=== PATIENT | female | born 1995 | race Caucasian/White ===

== ENCOUNTER 2018-02-14 05:30 | Inpatient (IN) | payer BC, OTHER ==
[2018-02-14] MEDS ORDERED: OXYTOCIN 10 UNIT/ML 1 ML VIAL IM PRN (05:45)
[2018-02-14] MEDS ORDERED: TERBUTALINE 1 MG/ML VIAL SQ PRN (05:45)
[2018-02-14] MEDS ORDERED: LIDOCAINE 1% (PF) 10 MG/ML (30 ML SDV) SQ PRN (05:45)
[2018-02-14] MEDS ORDERED: CARBOPROST TROMETHAMINE 250 MCG/ML 1 ML AMP IM PRN (05:45)
[2018-02-14] MEDS: LACTATED RINGERS 1,000 ML IV SCH ×2 (05:45→06:52)
[2018-02-14] MEDS ORDERED: METHYLERGONOVINE 0.2 MG/ML 1 ML AMP IM PRN (05:45)
[2018-02-14 05:52] VITALS: BMI 30.8
[2018-02-14] MEDS ORDERED: BUTORPHANOL 1 MG/ML 1 ML VIAL IV PRN (05:54)
[2018-02-14 06:13] LABS: Basophils % (A) 0 %; Eosinophils # (A) 0.1 k/uL (0-0.7); Eosinophils % (A) 1 %; HCT 36.5 % (34.0-46.0); HGB 11.9 gm/dL (11.4-16.0); Lymphocytes % (A) 5 %; MCH 26.7 pg (25.0-35.0); MCHC 32.5 g/dL (31.0-37.0); MCV 82.3 fL (80.0-100.0); Mean Platelet Volume 9.5; Monocytes # (A) 0.7 k/uL (0-1.0); Monocytes % (A) 3 %; Neutrophils # (A) 17.2 k/uL (1.3-7.7); Neutrophils % (A) 90 %; Platelet Count 230 k/uL (150-450); RBC 4.44 m/uL (3.80-5.40); RDW 14.3 % (11.5-15.5); WBC 19.2 k/uL (4.0-11.0)
[2018-02-14] MEDS ORDERED: BUPIVACAINE (PF) 0.25% 30 ML VIAL ONE (06:25)
[2018-02-14] MEDS ORDERED: SODIUM CHLORIDE 0.9% 100 ML BAG ONE (06:25)
[2018-02-14] MEDS ORDERED: fentaNYL (PF) 50 MCG/ML 5 ML AMP ONE (06:25)
[2018-02-14] MEDS ORDERED: BUPIVACAINE (PF) 0.25% 25 ML, fentaNYL (PF) 200 MCG in SODIUM CHLORIDE 0.9% 71 ML EPIDURAL ONE (06:49)
--- NOTE | 2018-02-14 07:56 | P.HPOB ---
History of Present Illness H&P Date: 02/14/18 Chief Complaint: Strong regular uterine contractions This is a 22-year-old white female 1 para 0 EDC 02/18/2018 at 39-3/7 weeks' gestation. Patient presented with strong regular uterine contractions in early spontaneous labor. Fetus is been active throughout the . She denies vaginal bleeding. She was scheduled for elective induction this morning, but came in through the night in spontaneous labor. Past medical history is negative. Past surgical history tonsillectomy and adenoidectomy, tympanic tubes placed at age 6. Current medications vitamins daily. ALLERGIES include Lorabid to which reports a rash. 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 Family history significant for hypertension. history is significant for blood type O+, rubella status immune. VDRL testing, urine culture, hepatitis B surface antigen, HIV testing, gonorrhea and chlamydia cultures, group B strep cultures all negative. One-hour Glucola 93. On exam this is a pleasant young female, she is 5 foot 3 inches, 174 pounds, blood pressure 131/78 on admission. The general physical exam is within normal limits. Cervix at time of this dictation is 7 cm dilated, 100% effaced, -1 station, vertex presentation with a fore bag. Artificial amniorrhexis of the fore bag reveals clear fluid. heart rate is in the 130s baseline with frequent accelerations, consistent with reactive NST. Impression: 39-3/7 weeks intrauterine , active spontaneous labor, all signs reassuring. Plan: Epidural has been placed. Consider oxytocin augmentation pending clinical progress. Continue close maternal and surveillance. Anticipate normal spontaneous vaginal delivery. Review of Systems Negative except as in HPI Past Medical History Past Medical History: No Reported History History of Any Multi-Drug Resistant Organisms: None Reported Additional Past Surgical History / Comment(s): Tubes in ears. Past Anesthesia/Blood Transfusion Reactions: No Reported Reaction Smoking Status: Never smoker Past Alcohol Use History: None Reported Past Drug Use History: None Reported - Past Family History Mother Family Medical History: No Reported History Medications and Allergies Home Medications Medication Instructions Recorded Confirmed Type Pnv No.95/Ferrous Fum/Folic AC 1 tab PO DAILY 02/14/18 02/14/18 History [ Multivitamin Tablet] Allergies Allergy/AdvReac Type Severity Reaction Status Date / Time loracarbef [From Lorabid] Allergy Rash/Hives Verified 02/14/18 05:44 Exam - Vital Signs Vital signs: Vital Signs Temp Pulse Resp BP 02/14/18 05:46 98.5 F 123 H 18 131/78 Intake and Output 02/13/18 02/14/18 02/14/18 22:59 06:59 14:59 Intake Total 1000 Balance 1000 Intake: Intake, IV Titration 1000 Amount Lactated Ringers 1,000 ml 1000 @ 125 mls/hr IV .Q8H MARVEL Rx#:[id number] Other: # Voids 1 Weight 78.925 kg See dictation please under HPI Results Result Diagrams: 02/14/18 05:55 Abnormal Lab Results - Last 24 Hours (Table) 02/14/18 Range/Units 05:55 WBC 19.2 H (4.0-11.0) k/uL Neutrophils # 17.2 H (1.3-7.7) k/uL Assessment and Plan Plan: Continue close maternal and surveillance. Epidural has been placed and is functioning well. Anticipate normal spontaneous vaginal delivery. Time with Patient: Less than 30
[2018-02-14] MEDS: OXYTOCIN 20 UNITS/1000 ML NS 1,000 ML IV SCH (07:57)
[2018-02-14] MEDS ORDERED: ACETAMINOPHEN TAB 325 MG TAB PO PRN (10:51)
[2018-02-14] MEDS ORDERED: HYDROCORTISONE 2.5% RECTAL CREAM 30 GM TUBE RECTAL PRN (10:51)
[2018-02-14] MEDS ORDERED: BENZOCAINE/MENTHOL SPRAY 1 GM/SPRAY AEROSOL TOPICAL PRN (10:51)
[2018-02-14] MEDS ORDERED: ZOLPIDEM 5 MG TAB PO PRN (10:51)
[2018-02-14] MEDS ORDERED: diphenhydrAMINE 50 MG CAP PO PRN (10:51)
[2018-02-14] MEDS ORDERED: diphenhydrAMINE 25 MG CAP PO PRN (10:51)
[2018-02-14] MEDS ORDERED: WITCH HAZEL 1 EACH MED..PAD TOPICAL PRN (10:51)
[2018-02-14] MEDS ORDERED: SIMETHICONE 80 MG CHEWABLE PO PRN (10:51)
[2018-02-14] MEDS ORDERED: LANOLIN CREAM 5 GM TUBE TOPICAL PRN (10:51)
[2018-02-14] MEDS ORDERED: diphenhydrAMINE 50 MG/ML 1 ML VIAL IVP PRN ×2 (10:51)
--- NOTE | 2018-02-14 10:51 | P.PROBDLV ---
Vaginal Delivery Note - . Vaginal Delivery Note: This is a 22-year-old white female 1 para 0 EDC 02/18/2018 at 39-3/7 weeks' gestation. Patient presented in active spontaneous labor. was essentially unremarkable, group B strep cultures negative, please see my dictated history and physical for details. Epidural was placed per her request. Oxytocin augmentation was given. Patient progressed well through the first stage of labor and at all times heart tones were reassuring. She became completely dilated at 0940 hours and began the second stage of labor at that time. She pushed successfully in the dorsal lithotomy position, and ultimately the perineal body was prepped and draped in usual sterile fashion. 's head crowned in the occiput anterior position. Infant restituted accordingly. There was no nuchal cord noted. The anterior shoulder was gently delivered from underneath the pubic symphysis at which time the oropharynx, external nares, and nasopharynx were all bulb suctioned. Patient was officially delivered of a liveborn male infant at 1032 hrs. The umbilical cord was doubly clamped and ligated. He was handed to waiting nurses for evaluation where scores of 8 and 9 at one and 5 minutes respectively were given. The placenta delivered spontaneously, it was inspected and noted to be meconium-stained with trivascular cord. This time the perineal body was redraped. Inspection of the cervix, vagina, perineum and periurethral areas revealed no lacerations and no defects. The was a small right labial defect that was superficial, non-hemorrhagic and therefore left in situ. Fundus is firm and in the midline, symmetric and 18 week size upon completion of delivery. weighed 3510 g or 7 lbs. 11 oz. Patient and her family are allowed to begin the bonding experience in the LDR. They are requesting circumcision further son.
[2018-02-14] MEDS: IBUPROFEN 600 MG TAB PO PRN (14:08)
[2018-02-14 16:34] VITALS: RESP 16
[2018-02-14] MEDS: SENNOSIDES-DOCUSATE SODIUM 1 EACH TAB PO SCH (20:27)
[2018-02-15] MEDS: IBUPROFEN 600 MG TAB PO PRN (00:35)
[2018-02-15 07:51] VITALS: BP 131/63; PULSE 87; TEMP 97.9
[2018-02-15] MEDS: LACTATED RINGERS 1,000 ML IV SCH ×2 (07:53→07:54)
[2018-02-15] MEDS: OXYTOCIN 20 UNITS/1000 ML NS 1,000 ML IV SCH (07:54)
[2018-02-15] MEDS: SENNOSIDES-DOCUSATE SODIUM 1 EACH TAB PO SCH (07:54)
[2018-02-15 08:30] LABS: Basophils % (A) 0 %; Eosinophils # (A) 0.1 k/uL (0-0.7); Eosinophils % (A) 1 %; HCT 28.9 % (34.0-46.0); Lymphocytes # (A) 2.5 k/uL (1.0-4.8); Lymphocytes % (A) 15 %; MCH 26.9 pg (25.0-35.0); MCHC 32.1 g/dL (31.0-37.0); MCV 83.8 fL (80.0-100.0); Mean Platelet Volume 9.3; Monocytes # (A) 0.9 k/uL (0-1.0); Monocytes % (A) 5 %; Neutrophils # (A) 13.2 k/uL (1.3-7.7); Neutrophils % (A) 78 %; Platelet Count 202 k/uL (150-450); RBC 3.44 m/uL (3.80-5.40); RDW 14.6 % (11.5-15.5)
[2018-02-15 08:33] LABS: HGB 9.3 gm/dL (11.4-16.0)
--- NOTE | 2018-02-15 11:39 | P.DS ---
Providers Date of admission: 02/14/18 05:30 Expected date of discharge: 02/15/18 Attending physician: Caridad Cheema Primary care physician: [facility] Course: This is a 22-year-old white female 1 para 0 EDC 02/18/2018 at 39-3/7 weeks' gestation. Patient presented in spontaneous active labor. was unremarkable, group B strep cultures negative, blood type O positive, rubella status immune. Please see my dictated history and physical for details. Spontaneous amniorrhexis revealed clear fluid. Epidural was placed per her request. She progressed well and went on to deliver vaginally a liveborn male with scores of 8 and 9 at one and 5 minutes respectively. There was an estimated blood loss recorded of 400 mL, and a small right labial laceration easily repaired. weighed 7 lbs. 11 oz. or 3510 g. Please see my dictated delivery note for details. This morning the patient and her baby are both doing well. Circumcision has been performed. The patient is voiding, ambulating, passing flatus without difficulty. Vital signs are stable and she is afebrile. Fundus is firm and in the midline, symmetric and 18 week size. Extremities are negative for edema. Breasts are not engorged. Lochia rubra is minimal to moderate. Patient is judged to be in very good condition for discharge home. She is reminded to use [id number] ibuprofen products as needed for pain, 200 mg pills, 3 every 6 hours as needed. I've asked her to call me with any fevers shakes or chills, foul smelling or copious lochia, with the passage of large blood clots, with any pain not alleviated by ukno-tmf-onkkkko products, or indeed with any concerns. 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 Patient Condition at Discharge: Good Plan - Discharge Summary New Discharge Prescriptions: No Action Pnv No.95/Ferrous Fum/Folic AC [ Multivitamin Tablet] 1 tab PO DAILY Discharge Medication List Pnv No.95/Ferrous Fum/Folic AC [ Multivitamin Tablet] 1 tab PO DAILY 04/27 [History] Follow up Appointment(s)/Referral(s): Caridad Cheema MD [STAFF PHYSICIAN] - 6 Weeks Discharge Disposition: HOME SELF-CARE
== END 2018-02-15 13:35 | disposition home or self-care (01) | DRG 775 ==
LOC: 4FBP 05:30
PROVIDERS: ADMIT Obstetrics & Gynecology; ATTEND Obstetrics & Gynecology
PROC: 10E0XZZ Delivery of Products of Conception, External Approach (ICD-10-PCS; principal; 2018-02-14)
PROC: 0HQ9XZZ Repair Perineum Skin, External Approach (ICD-10-PCS; 2018-02-14)
PROC: 10907ZC Drainage of Amniotic Fluid, Therapeutic from Products of Conception, Via Natural or Artificial Opening (ICD-10-PCS; 2018-02-14)
PROC: 3E0R3NZ Introduction of Analgesics, Hypnotics, Sedatives into Spinal Canal, Percutaneous Approach (ICD-10-PCS; 2018-02-14)
PROC: 00HU33Z Insertion of Infusion Device into Spinal Canal, Percutaneous Approach (ICD-10-PCS; 2018-02-14)
DX: O77.0 Labor and delivery complicated by meconium in amniotic fluid (principal); O70.0 First degree perineal laceration during delivery; Z37.0 Single live birth; Z82.49 Family history of ischemic heart disease and other diseases of the circulatory system; Z3A.39 39 weeks gestation of pregnancy; Z88.8 Allergy status to other drugs, medicaments and biological substances; Z90.89 Acquired absence of other organs
CPT/HCPCS: 85025; 88307

== ENCOUNTER 2019-12-20 09:23 | Day surgery (SDC) | payer BC, OTHER ==
[2019-12-18 09:14] VITALS: BMI 26.6
[~2019-12-20 09:23] MED LIST: LACTATED RINGERS 1,000 ML IV SCH; LIDOCAINE 1% (10MG/ML) FOR IV START INTRADERMA PRN
[2019-12-20 10:09] VITALS: RESP 16; TEMP 98.4
[2019-12-20] MEDS ORDERED: ONDANSETRON 4 MG/2 ML VIAL IVP ONE (10:14)
[2019-12-20] MEDS ORDERED: LIDOCAINE 1% INJ 10MG/ML (20 ML MDV) ONE (11:40)
[2019-12-20] MEDS ORDERED: PROPOFOL 10 MG/ML 20 ML VIAL IV ONE (11:40)
--- NOTE | 2019-12-20 11:47 | P.GSHP ---
History of Present Illness H&P Date: 12/20/19 Chief Complaint: GI bleed, colitis Is a 24-year-old female who has a history of rectal bleeding and mucousy bowel movements patient rents today for colonoscopy to evaluate for colitis. Past Medical History Past Medical History: No Reported History, GI Bleed History of Any Multi-Drug Resistant Organisms: None Reported Past Surgical History: Tonsillectomy Additional Past Surgical History / Comment(s): Tubes in ears. Past Anesthesia/Blood Transfusion Reactions: No Reported Reaction Smoking Status: Never smoker - Past Family History Mother Family Medical History: No Reported History Medications and Allergies Home Medications Medication Instructions Recorded Confirmed Type Medroxyprogesterone Acetate 150 mg IM Q90D 12/18/19 12/20/19 History [Depo-Provera] Multivitamins, Thera [Multivitamin 1 tab PO DAILY 12/18/19 12/20/19 History (formulary)] Allergies Allergy/AdvReac Type Severity Reaction Status Date / Time loracarbef [From Lorabid] Allergy Rash/Hives Verified 12/20/19 09:53 Surgical - Exam Vital Signs Temp Pulse Resp BP Pulse Ox 98.4 F 95 16 126/64 100 12/20/19 10:08 12/20/19 10:08 12/20/19 10:08 12/20/19 10:08 12/20/19 10:08 - General well developed, well nourished, no distress - Eyes PERRL - ENT normal pinna - Neck no masses - Respiratory normal expansion - Cardiovascular Rhythm: regular - Abdomen Abdomen: soft, non tender Assessment and Plan Assessment: GI bleed, mucousy bowel movements. We'll perform colonoscopy.
--- NOTE | 2019-12-20 12:18 | P.OP ---
Date of Procedure: 12/20/19 Preoperative Diagnosis: Colitis Postoperative Diagnosis: Proctitis Procedure(s) Performed: Colonoscopy Anesthesia: MAC Surgeon: Rommel Bowles Pathology: other (Rectum) Condition: stable Disposition: PACU Description of Procedure: The patient's placed on the endoscopy table in the lateral position. She received IV station. Digital rectal exam was performed which revealed no abnormalities. The flexible colonoscope was then placed patient anus and passed throughout the entire colon. The ileocecal valve sutures. The cecum, ascending and transverse colon appeared normal. The descending and sigmoid colon appeared normal. The scope was then brought back the rectum and there was evidence of proctitis. The proctitis extending to approximately 30 cm there was evidence of erythema and white plaques. The area is photographed and biopsied. Scope was withdrawn for patient.
[2019-12-20 12:25] VITALS: BP 107/67; PULSE 63
== END 2019-12-20 12:37 | disposition home or self-care (01) ==
LOC: ORWHC2ENDO 09:23
PROVIDERS: ATTEND Surgery
DX: K62.89 Other specified diseases of anus and rectum (principal); Z87.19 Personal history of other diseases of the digestive system; Z90.89 Acquired absence of other organs; Z98.890 Other specified postprocedural states; Z79.3 Long term (current) use of hormonal contraceptives; Z88.1 Allergy status to other antibiotic agents
CPT/HCPCS: 81025; 88305; 45380; J2405; J2001; J2704

== ENCOUNTER 2020-04-14 12:53 | Emergency (ER) | payer BC, OTHER ==
[2020-04-14 13:05] VITALS: RESP 18; TEMP 98.1
[2020-04-14] MEDS ORDERED: KETOROLAC 60 MG/2 ML VIAL IM STA (14:45)
[2020-04-14] MEDS ORDERED: DIAZEPAM 5 MG TAB PO STA (14:45)
[2020-04-14] MEDS ORDERED: Acetaminophen-Codeine 300-30mg TAB PO STA (14:45)
[2020-04-14] MEDS ORDERED: ACET/COD 300 MG/30 MG STARTER PACK 6 TAB BTL PO STA (14:45)
[2020-04-14] MEDS ORDERED: IBUPROFEN 600 MG STARTER PACK 4 TAB BTL PO STA (14:46)
--- NOTE | 2020-04-14 14:46 | ED ---
Recheck HPI - General Chief Complaint: Eye Problems Stated Complaint: Blurred Vision Time Seen by Provider: 04/14/20 14:23 Source: patient, RN notes reviewed, old records reviewed Mode of arrival: ambulatory Limitations: no limitations - History of Present Illness Initial Comments: This is a 22-year-old female she presents today for evaluation of some blurry vision patient is suffering from chronic neck pain or weak. No trauma. Numbness and tingling left arm and fingers. She has been treated for sinus infections and multiple different imaging of that modalities done including CTs of her neck, patient seen a chiropractor as well with no improvement. Patient denying any fevers. Again denies any trauma. Is having persistent pain states that some blurry vision which bothered her. She is certainly medication a muscle relaxer for helping with the pain MD Complaint: other (Recheck in neck pain) -: week(s) Returns Today for: persistent/worsening pain related to initial visit Symptoms Since Prior Visit: no new symptoms, worsening pain Associated Symptoms: none Treatments Prior to Arrival: other medications (Muscle relaxer) - Related Data Home Medications Medication Instructions Recorded Confirmed Medroxyprogesterone Acetate 150 mg IM Q90D 12/18/19 12/20/19 [Depo-Provera] Multivitamins, Thera [Multivitamin 1 tab PO DAILY 12/18/19 12/20/19 (formulary)] Allergies Allergy/AdvReac Type Severity Reaction Status Date / Time loracarbef [From Lorabid] Allergy Rash/Hives Verified 04/14/20 13:05 Review of Systems ROS Statement: Those systems with pertinent positive or pertinent negative responses have been documented in the HPI. ROS Other: All systems not noted in ROS Statement are negative. Past Medical History Past Medical History: No Reported History, GI Bleed History of Any Multi-Drug Resistant Organisms: None Reported Past Surgical History: Tonsillectomy Additional Past Surgical History / Comment(s): Tubes in ears. Past Anesthesia/Blood Transfusion Reactions: No Reported Reaction Past Psychological History: No Psychological Hx Reported Smoking Status: Never smoker Past Alcohol Use History: None Reported Past Drug Use History: None Reported - Past Family History Mother Family Medical History: No Reported History General Exam Limitations: no limitations General appearance: alert, in no apparent distress Head exam: Present: atraumatic, normocephalic, normal inspection Eye exam: Present: normal appearance, PERRL, EOMI. Absent: scleral icterus, conjunctival injection, periorbital swelling ENT exam: Present: normal exam, mucous membranes moist Neck exam: Present: normal inspection. Absent: tenderness, meningismus, lymphadenopathy Respiratory exam: Present: normal lung sounds bilaterally. Absent: respiratory distress, wheezes, rales, rhonchi, stridor Cardiovascular Exam: Present: regular rate, normal rhythm, normal heart sounds. Absent: systolic murmur, diastolic murmur, rubs, gallop, clicks GI/Abdominal exam: Present: soft, normal bowel sounds. Absent: distended, tenderness, guarding, rebound, rigid Extremities exam: Present: normal inspection, full ROM, normal capillary refill. Absent: tenderness, pedal edema, joint swelling, calf tenderness Back exam: Present: normal inspection Neurological exam: Present: alert, oriented X3, CN II-XII intact Psychiatric exam: Present: normal affect, normal mood Skin exam: Present: warm, dry, intact, normal color. Absent: rash Course Vital Signs 04/14/20 13:02 Temperature 98.1 F Pulse Rate 101 H Respiratory 18 Rate Blood Pressure 143/91 O2 Sat by Pulse 100 Oximetry - Reevaluation(s) Reevaluation #1: 04/14/20 15:05 Medical records reviewed Reevaluation #2: 04/14/20 15:05 Improves mildly improved here in the ER Medical Decision Making - Medical Decision Making 24 female DF for evaluation cervical strain possible slipped disc etc. patient follow-up with primary care regarding further care. Patient given symptomatic therapy here in the urine can be discharged home blurry vision is binocular, unconcerned extraocular movements intact. Patient to be discharged Disposition Clinical Impression: Binocular vision disorder with diplopia, Neck pain, Cervical strain Disposition: HOME SELF-CARE Condition: Good Instructions (If sedation given, give patient instructions): Cervical Strain (ED), Diplopia (ED) Is patient prescribed a controlled substance at d/c from ED?: No Referrals: Arnold Baez MD [Primary Care Provider] - 1-2 days
[2020-04-14 17:06] VITALS: BP 126/89; PULSE 79
== END 2020-04-14 17:07 | disposition home or self-care (01) ==
LOC: EC 12:53
DX: H53.2 Diplopia (principal); S16.1XXA Strain of muscle, fascia and tendon at neck level, initial encounter; Z79.3 Long term (current) use of hormonal contraceptives; Z88.1 Allergy status to other antibiotic agents; X50.9XXA Other and unspecified overexertion or strenuous movements or postures, initial encounter
CPT/HCPCS: 99284; 96372; J1885

== ENCOUNTER → 2020-04-24 | Outpatient (CLI) | payer BC, OTHER ==
--- NOTE | 2020-04-24 12:42 | MR ---
PRE AND POSTCONTRAST ENHANCED MRI OF THE BRAIN: CLINICAL HISTORY: Papilledema CONTRAST: Gadavist 8 mL Multiplanar and multispin-echo imaging of the brain was performed both before and after the administr ation of contrast. The ventricles, basal cisterns and sulci overlying the cerebral convexities are within normal limits. There is no evidence for midline shift or mass effect. Acute intracranial hemorrhage or extra-axial collection is not evident. There are no abnormal areas of increased or decreased signal intensity within the brain parenchyma. Following contrast administration, there is no evidence for pathologic enhancement or enhancing mass. The paranasal sinuses and mastoid air cells are well-aerated. IMPRESSION: Unremarkable pre and postcontrast enhanced MRI of the brain.
== END | disposition home or self-care (01) ==
LOC: RADMRIMAIN 09:32
PROVIDERS: ATTEND Ophthalmology
DX: H47.10 Unspecified papilledema (principal)
CPT/HCPCS: 70553; A9585

== ENCOUNTER → 2020-05-01 | Outpatient (CLI) | payer BC, OTHER ==
[2020-05-01 23:24] LABS: Total Protein,CSF 39 mg/dL (12-60)
[2020-05-01 23:49] LABS: Appearance,CSF Clear; CSF Tube Number 4; Nucleated Cells, CSF 1 u/L (0-5); Red Blood Cell,CSF 0 u/L (0-10)
[2020-05-08 13:45] LABS: IgG - CSF 2.5 mg/dL (0.0 - 3.4); IgG/Albumin Index (CSF) 0.45 (0.00 - 0.77)
== END | disposition home or self-care (01) ==
LOC: LABWHC1 11:16
PROVIDERS: ATTEND Nurse Practitioner Acute Care
DX: H47.11 Papilledema associated with increased intracranial pressure (principal)
CPT/HCPCS: 36415; 82040; 82042; 82784; 83873; 83916; 84157; 87801; 88108; 89050